=== PATIENT | female | born 1980 | race Caucasian/White ===

== ENCOUNTER 2023-01-04 17:05 | Day surgery (SDC) | payer OTHER, SELFPAY ==
[2023-01-04] VITALS (12 sets, daily range): BP systolic 111–164; BP diastolic 75–86; PULSE 64–87; RESP 15–18; TEMP 36.2–43; O2SAT 91–99; BMI 32.4
--- NOTE | 2023-01-04 12:26 | CT_ITS ---
FINAL REPORT TECHNIQUE: Axial images through the abdomen and pelvis were performed without contrast. Oral contrast was given. This study was performed with techniques to keep radiation doses as low as reasonably achievable, (ALARA). Individualized dose reduction techniques using automated exposure control or adjustment of mA and/or kV according to the patient's size were employed. CLINICAL HISTORY: RT LOWER QUAD PAIN, n/v/d FINDINGS: ABDOMEN: There are minimal bilateral effusions. The heart size is normal. Limited images of the liver are unremarkable. The gallbladder is present. There is a fluid fluid level in the gallbladder, probably due to sludge. The spleen is normal. No adrenal mass is identified. The aorta is normal in caliber. There is no significant free fluid or adenopathy. There is no nephrolithiasis. There is no hydronephrosis. PELVIS: There is extensive inflammatory reaction surrounding a diffusely enlarged appendix consistent with acute appendicitis. Findings are best seen on images 63-72 of series 3. No definite abscess is identified. The uterus is present and lies midline. The urinary bladder is unremarkable. There is no significant free fluid or adenopathy. IMPRESSION: Acute appendicitis. Reviewed, Interpreted and Dictated by Giancarlo Jules MD Transcribed by Isabella Pizano Authenticated and [facility]
--- NOTE | 2023-01-04 17:12 | EXP.ANES.CKL ---
[facility] Disclaimer: The information contained in this section may have been updated after the patient was seen, as this information can be updated by other users. Medical History (Updated 11/11/22 @ 10:33 by Tatiana Small APRN) Generalized anxiety disorder Recurrent major depression resistant to treatment Social History (Updated 11/11/22 @ 10:34 by Tatiana Small APRN) Smoking Status: Former smoker alcohol intake: current substance use type: denies use current occupational status: employed Travel in the last 8 weeks: None number of children: 3 [facility] Anesthesia Checklist Patient Identification Patient Identification: Arm Band and Family Structural Data Admitted From: Home Planned Operative Procedure/s: Laparoscopic appendectomy Consent for Planned Operative Procedure(s) Verified: Yes Verified Documents: Surgical Consent NPO Status Verified Time NPO: 00:00 Additional verifications Patient : No Anesthesia Reactions: No Hx Blood Transfusions: No Blood Transfusion Reaction: No Cephalosporin Allergy: No Previous Colonoscopy: Yes Airway Assessment C-Spine Mobility Assessed: Yes TMJ Mobility Assessed: Yes Dentition: Good Dentition Neurological Assessment Level of Consciousness: Awake, Alert, Appropriate and Follows Commands Hx Seizures: No Numbness or tingling in extremities: No Genitourinary Assessment 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
[2023-01-04 17:19] LABS: Urine Pregnancy, HCG Qual. Negative (Negative)
[2023-01-04 17:27] LABS: Basophils % 0.4 % (0.1-2.0); Eosinophils # 0.3 K/mm3 (0.0-0.4); Eosinophils % 2.5 % (0.1-12.0); Hematocrit 37.1 % (37.0-47.0); Lymphocytes # 1.9 K/mm3 (0.7-4.5); Lymphocytes % 17.7 % (10-50); Mean Corpuscular HGB Conc 32.5 g/dL (31.8-35.4); Mean Corpuscular Hemoglobin 29.1 pg (27.0-31.2); Mean Corpuscular Volume 89.5 fl (81-99); Mean Platelet Volume 7.4 fl (7.4-10.4); Monocytes # 0.3 K/mm3 (0.1-1.0); Monocytes % 3.1 % (1.7-9.3); Neutrophils # 8.2 K/mm3 (1.8-7.8); Neutrophils % 76.2 % (37.0-80.0); Platelet Count 247 K/mm3 (142-424); Red Blood Count 4.14 M/mm3 (4.20-5.40); White Blood Count 10.7 K/mm3 (4.8-10.8)
[2023-01-04 17:37] LABS: Chloride 105 mmol/L (98-107); Sodium 136 mmol/L (136-145)
[2023-01-04 17:38] LABS: Potassium 3.4 mmoL/L (3.5-5.1)
[2023-01-04 17:40] LABS: Blood Urea Nitrogen 6 mg/dl (7-17); Creatinine Clearance Estimated 146 mL/min (50-200); Estimated Glomerular Filt Rate 92 ml/min (>60); GFR (African American) 111 ML/MIN (>60)
[2023-01-04 17:41] LABS: Anion Gap 9.4 mEq/L (5-15); Calcium 8.9 mg/dl (8.4-10.2); Carbon Dioxide 25 mmol/L (22.0-30.0); Glucose 94 mg/dl (74-100)
--- NOTE | 2023-01-04 19:00 | P.OP_ITS ---
Date of procedure: 01/04/23 Pre-op Diagnosis:: Appendicitis Post-op Diagnosis:: Suppurative appendicitis with no obvious perforation Procedure performed:: Laparoscopic appendectomy Surgeon:: Tyrell Sandoval MD Anesthesia: GETHelen Estimated blood loss (mL): 15 Operative findings:: Severe periappendiceal inflammation Suppurative appendicitis Operative note:: After informed consent was obtained the patient was taken to the operating room and placed in the supine position. General anesthesia was induced and her abdomen was prepped and draped in a sterile fashion. After infiltration local anesthetic an infraumbilical incision was made. A Veress needle was placed in position. The abdomen was insufflated. A 12 mm optical trocar was placed in position. Under direct visualization a 5 mm trocar was placed in the suprapubic position and an additional 5 mm trocar was placed in the left lower quadrant. The appendix was found to be partially retrocecal along the lateral margin. Severe inflammation throughout was confirmed. Suppurative changes were also noted. No definitive perforation was seen; however, some cloudy fluid was noted. No formed abscess was appreciable. The mesoappendix was taken with harmonic loc at the margin of the appendix to minimize risk of injuring surrounding colon and small bowel (dense adhesions). No obvious colonic or small bowel injury was seen. An Endopath 45 stapling device was then used to tr ansect the appendix at its base. The appendix was placed in a retrieval bag and removed through the infraumbilical trocar site. The right lower quadrant and pelvis was thoroughly irrigated. No active bleeding or sign of injury was noted. Fascia at the infraumbilical trocar site was reapproximated with 0 Ethibond. Pneumoperitoneum was released as the remaining trocars were removed. All wounds were irrigated and skin was closed with 4-0 Monocryl in a subcuticular fashion. Dressings were applied and the patient was transferred to recovery in stable condition. Condition: stable Disposition: PACU Specimens:: Appendix Complications:: No immediate
--- NOTE | 2023-01-04 19:17 | EXP.ANES.I ---
[facility] Anesthesia Record Part I Anesthesia Record I Intake, IV Amount: 1,000 Estimated blood loss (mL): 15 Urine output (mL): 0 Blood Products used (#): none Blood Pressure: 111/76 SaO2: 92 Pulse Rate: 87 Respiratory Rate: 18 Temperature: 97.1 F Patient is:: Drowsy and Stable Stable to PACU at:: 19:07
[2023-01-04 20:25] LABS: Microscopic,Cath URINE MICROSCOPIC (MICROSCOPIC)
[2023-01-04 20:47] LABS: Appearance,Urine/Cath CLEAR (Clear); Blood, Urine/Cath Negative (Negative); Color,Urine/Cath YELLOW (Yellow); Glucose,Urine/Cath (UA) Negative (Negative); Ketones,Urine/Cath 1+ (Negative); Leukocyte Esterase,Cath Negative (Negative); Nitrate,Cath Negative (Negative); PH,Urine/Cath 6.5 (5.0-8.5); Protein,Urine/Cath 1+ (Negative); Specific Gravity, Urine/Cath >= 1.030 (1.005-1.030); Urobilinogen,Cath 0.2 EU/dl (0.2)
[2023-01-04 20:50] LABS: Bilirubin,Cath 1+ (Negative)
[2023-01-04 21:18] LABS: Bacteria,Urine/Cath TRACE /lpf; Mucus,Urine/Cath 1+ /lpf; RBC,Urine/Cath Occasional # /hpf (0-3)
--- NOTE | 2023-01-05 07:17 | P.PNANES_ITS ---
[facility] Anesthesia Record Part II Anesthesia Record Part II Discharge Time: 19:37 Destination: Surgical Day Care (OP Surgery) PACU nurse assessment reviewed?: Yes Patient Condition:: Good Anesthesia Complications:: None Swallowing reflex intact?: Yes Cyanosis?: No Blood Pressure: 153/86 Pulse Rate: 78 Temperature: 97.9 F Mental Status: Alert & Oriented Pain level:: 0 Nausea and/or vomitting:: None Intake, IV Amount: 0
[2023-01-05 07:18] VITALS: BP 153/86; PULSE 78; TEMP 36.6
== END 2023-01-04 20:45 | disposition home or self-care (01) ==
LOC: OR 17:05
PROVIDERS: PCP Family Medicine; Referring Provider Surgery; Visit Provider Surgery
PROC: 0DTJ4ZZ Resection of Appendix, Percutaneous Endoscopic Approach (ICD-10-PCS; CPT 44970; principal; 2023-01-04 17:00)
DX: K35.80 Unspecified acute appendicitis (principal); K65.9 Peritonitis, unspecified
CPT/HCPCS: 44970; 74176; 80048; 81001; 81025; 85025; J0696; J2405